=== PATIENT | male | born 1955 | race Caucasian/White ===

== ENCOUNTER 2022-05-01 20:19 | Emergency (ER) | payer OTHER ==
--- OUTSIDE RECORDS SUMMARY | 2022-05-01 20:23 | XMS REPORT | Continuity of Care Document ---
:1955 Author Organization [facility] t Address [address] [place] [address] Dr. [address]. [address] [place] [address] Care Team Providers Name Role Phone [facility] Physician Harlan Rabago MD Attending Clinician CHRETIEN_F Attending Clinician Unavailable Michelle Garcia MD Attending Clinician Adeline Brewster Attending Clinician [phone] Adriana Lentz Attending Clinician Unavailable MIKA Attending Clinician Unavailable Jada Álvarez Attending Clinician [phone] Maritza Del Toro MD Attending Clinician Provider, Unknown Attending Clinician Unavailable Alyce Louise Attending Clinician [phone] ALYCE PUTNAM Attending Clinician Unavailable CHRETIEN_F Admitting Clinician Unavailable MIKA Admitting Clinician Unavailable Payers Payer Name Policy Type Policy Number Effective Date Expiration Date S [facility] [id number] 2021 00:00:00 [place] [id number] 2019 00:00:00 Problems Condition Condition Condition Status Onset Resolution Last Treating Co mments Source Name Details Category Date Date Treatment Clinician Date Chronic Chronic Problem Active 2021-06 Raymond low back Low Back 06-08 Commun i pain Pain 00:00: ty [facility] Essential Essential Problem Active 2021-06 Swe soraya hypertensi Hypertensi 0-18 Co mmuni on on 00:00: ty 00 [facility] Fatigue Fatigue Problem Active 2021-06 Raymond 0-18 Communi 00:00: ty 00 [facility] Pain of Pain of Problem Active 2021-06 Raymond left hip Left Hip 0-18 Commun i joint Joint 00:00: ty 00 [facility] Hyperchole Hyperchole Problem Active 2021-06 S weeny sterolemia sterolemia 0-18 Co mmuni 00:00: ty 00 [facility] Knee joint Knee Joint Problem Active 2021-06 S weeny painful on Painful on 0-18 Co mmuni movement Movement 00:00: ty 00 [facility] Diabetes Diabetes Problem Active Sween y mellitus Mellitus 8-30 Commun i 00:00: ty 00 [facility] Diabetic Diabetic Problem Active Sween y peripheral Peripheral 8-30 Co mmuni neuropathy Neuropathy 00:00: ty 00 [facility] Hyperlipid Hyperlipid Problem Active S weeny emia emia 8-30 Communi 00:00: ty 00 [facility] Edema of Edema of Problem Active Sween y lower Lower 8-30 Communi extremity Extremity 00:00: ty 00 [facility] Osteoarthr Osteoarthr Disease Active Overview : Methodi itis of itis of 4-[address] left knee left knee 00:00: g of this H ospita 00 note l might be different from the original. Added automatic ally from request for surgery [id number] Primary Primary Disease Active Methodi osteoarthr osteoarthr 7-20 st itis of itis of 00:00: Hospita both knees both knees 00 l Allergies, Adverse Reactions, Alerts This patient has no known allergies or adverse reactions. Social History Social Habit Start Date Stop Date Quantity Comments Source Alcohol intake 2022-04-18 2022-04-18 Current Sikhism 00:00:00 00:00:00 non-drinker of Hospital alcohol (finding) Tobacco use and 2017-06-07 2017-06-[address] [facility] exposure 00[facility]00[facility]00 [facility] Sex Assigned At [birth year] [facility] 00:00:00 00:00:00 Hospital Smoking Status Start Date Stop Date Source Never smoked tobacco [facility] Medications Ordered Filled Start Stop Current Ordering Indication Dosage Frequency Signature Comments Components Source Medication Medication Date Date Medication? Clinician (SIG) Name Name ibuprofen 0 Yes 200mg Q6H Take 200 Met hodi (ADVIL,MOTR 7-[address] IN) 200 MG 15:22: mouth Hospit a tablet 26 every 6 l (six) hours as needed for mild pain. acetaminoph 0 Yes 325mg Q6H Take 325 M ethodi en 7-[address] (TYLENOL) 15:22: mouth Hospita 325 MG 26 every 6 l tablet (six) hours as needed for fever. metFORMIN 0 Yes 500mg Q.5D Take 500 Met hodi XR 6-[address] (GLUCOPHAGE 00:00: mouth 2 [facility] -XR) 500 mg 00 (two) l 24 hr times a tablet day. acetaminoph Yes TAKE 1 Meth chris en-codeine 5-[address] (TYLENOL 00:00: MOUTH Hospita WITH 00 EVERY 8 l CODEINE #3) HOURS 300-30 mg NEEDED FOR per tablet 7 DAYS predniSONE 0 Yes 20mg Q.5D Take 20 mg M ethodi (DELTASONE) 5-[address] 20 mg 00:00: (two) Hospita tablet 00 times a l day. fenofibrate 0 Yes Method i (TRICOR) 4-08 st 145 MG 00:00: Hospita tablet 00 l chlorthalid 0 Yes 25mg QD Take 25 mg Methodi one 4-[address] (HYGROTEN) 00:00: daily. Hospi ta 25 MG 00 l tablet gabapentin 0 Yes 300mg Q.5D Take 300 Me thodi (NEURONTIN) 4-[address] 300 mg 00:00: mouth 2 Hospita capsule 00 (two) l times a day. magnesium 2021-0 Yes 1{tbl} QD Take 1 Meth chris oxide 4-[address] (MAG-OX) 00:00: mouth Hospita 400 mg 00 every l (241.3 mg evening. magnesium) tablet metoprolol 0 Yes 25mg QD Take 25 mg M ethodi succinate 4-[address] XL 00:00: daily. Hospita (TOPROL-XL) 00 l 25 mg 24 hr tablet Nystop Yes APPLY Methodi 100,000 4-[address] unit/gram 00:00: TOPICALLY [facility] powder 00 TO l AFFECTED AREA TWICE DAILY tadalafiL 0 Yes 10mg QD Take 10 mg Me thodi (CIALIS) 10 4-[address] MG tablet 00:00: daily. Hospit a 00 l traMADoL 0 Yes 50mg Q8H Take 50 mg Met hodi (ULTRAM) 50 4-[address] mg tablet 00:00: every 8 Hospi ta 00 (eight) l hours as needed. chlorthalid chlorthalid No 1 Q1D chlorthali Raymond one 25 mg one 25 mg done 25 mg Communi tablet Take tablet Take tablet ty 1 tablet 1 tablet Take 1 Hospi ta every day every day tablet l by oral by oral every day Clin ics route for route for by oral 90 days. 90 days. route for 90 days. gabapentin gabapentin No 1capsul BID gabapentin Raymond 300 mg 300 mg e(s) 300 mg Communi capsule capsule capsule ty Take 1 Take 1 Take 1 Hospita capsule capsule capsule l twice a day twice a day twice a Clinics by oral by oral day by route for route for oral route 30 days. 30 days. for 30 days. ibuprofen ibuprofen No ibuprofen [facility] ty [facility] l Clinics magnesium magnesium No 1capsul Q1D magnesium Raymond 400 mg (as 400 mg (as e(s) 400 mg (as Communi magnesium magnesium magnesium ty oxide) oxide) oxide) Hospita capsule capsule capsule l Take 1 Take 1 Take 1 Clinics capsule capsule capsule every day every day every day by oral by oral by oral route in route in route in the the the evening. evening. evening. metoprolol metoprolol No 1 Q1D metoprolol Raymond succinate succinate succinate Communi ER 25 mg ER 25 mg ER 25 mg ty tablet,exte tablet,exte tablet,ext Hospita nded nded ended l release 24 release 24 release 24 Clinics hr Take 1 hr Take 1 hr Take 1 tablet tablet tablet every day every day every day by oral by oral by oral route for route for route for 90 days. 90 days. 90 days. nystatin nystatin No nystatin Swe soraya 100,000 100,000 100,000 Commun i unit/gram unit/gram unit/gram ty topical topical topical Hospit a powder powder powder l APPLY TO APPLY TO APPLY TO Cli nics THE THE THE AFFECTED AFFECTED AFFECTED AREA(S) BY AREA(S) BY AREA(S) BY TOPICAL TOPICAL TOPICAL ROUTE 2 ROUTE 2 ROUTE 2 TIMES PER TIMES PER TIMES PER DAY DAY DAY tadalafil tadalafil No 1 Q1D tadalafil Raymond 10 mg 10 mg 10 mg Communi tablet Take tablet Take tablet ty 1 tablet 1 tablet Take 1 Hospi ta every day every day tablet l by oral by oral every day Clin ics route for route for by oral 30 days. 30 days. route for 30 days. tramadol 50 tramadol 50 No 1 Q8H tramadol Raymond mg tablet mg tablet 50 mg Comm uni Take 1 Take 1 tablet ty tablet tablet Take 1 Hospita every 8 every 8 tablet l hours by hours by every 8 Clin ics oral route oral route hours by as needed. as needed. oral route as needed. Tylenol Tylenol No Tylenol [facility] Commun[facility] ty [facility] l Clinics acetaminoph acetaminoph No 1 Q8H acetaminop Raymond en 300 en 300 hen 300 Communi mg-codeine mg-codeine mg-codeine ty 30 mg 30 mg 30 mg Hospita tablet Take tablet Take tablet l 1 tablet 1 tablet Take 1 Clini cs every 8 every 8 tablet hours by hours by every 8 oral route oral route hours by as needed as needed oral route for 7 days. for 7 days. as needed for 7 days. chlorthalid chlorthalid No chlorthali Raymond one 25 mg one 25 mg done 25 mg Communi tablet TAKE tablet TAKE tablet ty 1 TABLET BY 1 TABLET BY TAKE 1 Hospita MOUTH ONCE MOUTH ONCE TABLET BY l DAILY FOR DAILY FOR MOUTH ONCE Clinics 90 DAYS 90 DAYS DAILY FOR 90 DAYS fenofibrate fenofibrate No fenofibrat Raymond nanocrystal nanocrystal e C ommuni lized 145 lized 145 nanocrysta ty mg tablet mg tablet llized 145 Hospita TAKE 1 TAKE 1 mg tablet l TABLET BY TABLET BY TAKE 1 Cli nics MOUTH ONCE MOUTH ONCE TABLET BY DAILY FOR DAILY FOR MOUTH ONCE 30 DAYS 30 DAYS DAILY FOR 30 DAYS ibuprofen ibuprofen No ibuprofen [facility] ty [facility] l Clinics magnesium magnesium No 1capsul Q1D magnesium Raymond 400 mg (as 400 mg (as e(s) 400 mg (as Communi magnesium magnesium magnesium ty oxide) oxide) oxide) Hospita capsule capsule capsule l Take 1 Take 1 Take 1 Clinics capsule capsule capsule every day every day every day by oral by oral by oral route in route in route in the the the evening. evening. evening. magnesium magnesium No magnesium Raymond oxide 400 oxide 400 oxide 400 Communi mg (241.3 mg (241.3 mg (241.3 ty mg mg mg Hospita magnesium) magnesium) magnesium) l tablet TAKE tablet TAKE tablet Clinics 1 TABLET BY 1 TABLET BY TAKE 1 MOUTH ONCE MOUTH ONCE TABLET BY DAILY IN DAILY IN MOUTH ONCE THE EVENING THE EVENING DAILY IN THE EVENING metformin metformin No metformin Raymond ER 500 mg ER 500 mg ER 500 mg Communi tablet,exte tablet,exte tablet,ext ty nded nded ended Hospita release 24 release 24 release 24 l hr TAKE 1 hr TAKE 1 hr TAKE 1 Clinics TABLET BY TABLET BY TABLET BY MOUTH TWICE MOUTH TWICE MOUTH DAILY DAILY TWICE DAILY metoprolol metoprolol No metoprolol Raymond succinate succinate succinate Communi ER 25 mg ER 25 mg ER 25 mg ty tablet,exte tablet,exte tablet,ext Hospita nded nded ended l release 24 release 24 release 24 Clinics hr TAKE 1 hr TAKE 1 hr TAKE 1 TABLET BY TABLET BY TABLET BY MOUTH ONCE MOUTH ONCE MOUTH ONCE DAILY FOR DAILY FOR DAILY FOR 90 DAYS 90 DAYS 90 DAYS Nystop Nystop No Nystop Raymond 100,000 100,000 100,000 Commun i unit/gram unit/gram unit/gram ty topical topical topical Hospit a powder powder powder l APPLY APPLY APPLY Clinics POWDER POWDER POWDER TOPICALLY TOPICALLY TOPICALLY TO AFFECTED TO AFFECTED TO AREA TWICE AREA TWICE AFFECTED DAILY DAILY AREA TWICE DAILY prednisone prednisone No 1 BID prednisone Raymond 20 mg 20 mg 20 mg Communi tablet Take tablet Take tablet ty 1 tablet 1 tablet Take 1 Hospi ta twice a day twice a day tablet l by oral by oral twice a Clinic s route for 5 route for 5 day by days. days. oral route for 5 days. tramadol 50 tramadol 50 No tramadol Raymond mg tablet mg tablet 50 mg Comm uni TAKE 1 TAKE 1 tablet ty TABLET BY TABLET BY TAKE 1 [facility] MOUTH EVERY MOUTH EVERY TABLET BY l 8 HOURS 8 HOURS MOUTH Cl inics NEEDED NEEDED EVERY 8 HOURS NEEDED Tylenol Tylenol No Tylenol [facility] l [facility] acetaminoph acetaminoph No 1 Q8H acetaminop Raymond en 300 en 300 hen 300 Communi mg-codeine mg-codeine mg-codeine ty 30 mg 30 mg 30 mg Hospita tablet Take tablet Take tablet l 1 tablet 1 tablet Take 1 Clini cs every 8 every 8 tablet hours by hours by every 8 oral route oral route hours by as needed as needed oral route for 7 days. for 7 days. as needed for 7 days. chlorthalid chlorthalid No chlorthali Raymond one 25 mg one 25 mg done 25 mg Communi tablet TAKE tablet TAKE tablet ty 1 TABLET BY 1 TABLET BY TAKE 1 Hospita MOUTH ONCE MOUTH ONCE TABLET BY l DAILY FOR DAILY FOR MOUTH ONCE Clinics 90 DAYS 90 DAYS DAILY FOR 90 DAYS fenofibrate fenofibrate No fenofibrat Raymond nanocrystal nanocrystal e C ommuni lized 145 lized 145 nanocrysta ty mg tablet mg tablet llized 145 Hospita TAKE 1 TAKE 1 mg tablet l TABLET BY TABLET BY TAKE 1 Cli nics MOUTH ONCE MOUTH ONCE TABLET BY DAILY FOR DAILY FOR MOUTH ONCE 30 DAYS 30 DAYS DAILY FOR 30 DAYS ibuprofen ibuprofen No ibuprofen [facility] Clinics magnesium magnesium No 1capsul Q1D magnesium Raymond 400 mg (as 400 mg (as e(s) 400 mg (as Communi magnesium magnesium magnesium ty oxide) oxide) oxide) Hospita capsule capsule capsule l Take 1 Take 1 Take 1 Clinics capsule capsule capsule every day every day every day by oral by oral by oral route in route in route in the the the evening. evening. evening. magnesium magnesium No magnesium Raymond oxide 400 oxide 400 oxide 400 Communi mg (241.3 mg (241.3 mg (241.3 ty mg mg mg Hospita magnesium) magnesium) magnesium) l tablet TAKE tablet TAKE tablet Clinics 1 TABLET BY 1 TABLET BY TAKE 1 MOUTH ONCE MOUTH ONCE TABLET BY DAILY IN DAILY IN MOUTH ONCE THE EVENING THE EVENING DAILY IN THE EVENING metformin metformin No metformin Raymond ER 500 mg ER 500 mg ER 500 mg Communi tablet,exte tablet,exte tablet,ext ty nded nded ended Hospita release 24 release 24 release 24 l hr TAKE 1 hr TAKE 1 hr TAKE 1 Clinics TABLET BY TABLET BY TABLET BY MOUTH TWICE MOUTH TWICE MOUTH DAILY DAILY TWICE DAILY metoprolol metoprolol No metoprolol Raymond succinate succinate succinate Communi ER 25 mg ER 25 mg ER 25 mg ty tablet,exte tablet,exte tablet,ext Hospita nded nded ended l release 24 release 24 release 24 Clinics hr TAKE 1 hr TAKE 1 hr TAKE 1 TABLET BY TABLET BY TABLET BY MOUTH ONCE MOUTH ONCE MOUTH ONCE DAILY FOR DAILY FOR DAILY FOR 90 DAYS 90 DAYS 90 DAYS Nystop Nystop No Nystop Raymond 100,000 100,000 100,000 Commun i unit/gram unit/gram unit/gram ty topical topical topical Hospit a powder powder powder l APPLY APPLY APPLY Clinics POWDER POWDER POWDER TOPICALLY TOPICALLY TOPICALLY TO AFFECTED TO AFFECTED TO AREA TWICE AREA TWICE AFFECTED DAILY DAILY AREA TWICE DAILY prednisone prednisone No 1 BID prednisone Raymond 20 mg 20 mg 20 mg Communi tablet Take tablet Take tablet ty 1 tablet 1 tablet Take 1 Hospi ta twice a day twice a day tablet l by oral by oral twice a Clinic s route for 5 route for 5 day by days. days. oral route for 5 days. tramadol 50 tramadol 50 No tramadol Raymond mg tablet mg tablet 50 mg Comm uni TAKE 1 TAKE 1 tablet ty TABLET BY TABLET BY TAKE 1 [facility] MOUTH EVERY MOUTH EVERY TABLET BY l 8 HOURS 8 HOURS MOUTH Cl inics NEEDED NEEDED EVERY 8 HOURS NEEDED Tylenol Tylenol No Tylenol Raymond Communi ty [facility] fenofibrate fenofibrate No fenofibrat Raymond nanocrystal nanocrystal e C ommuni lized 145 lized 145 nanocrysta ty mg tablet mg tablet llized 145 Hospita TAKE 1 TAKE 1 mg tablet l TABLET BY TABLET BY TAKE 1 Cli nics MOUTH ONCE MOUTH ONCE TABLET BY DAILY FOR DAILY FOR MOUTH ONCE 30 DAYS 30 DAYS DAILY FOR 30 DAYS ibuprofen ibuprofen No [facility]uprofen [facility] No 1capsul Q1D magnesium Raymond 400 mg (as 400 mg (as e(s) 400 mg (as Communi magnesium magnesium magnesium ty oxide) oxide) oxide) [facility] capsule capsule capsule l Take 1 Take 1 Take 1 Clinics capsule capsule capsule every day every day every day by oral by oral by oral route in route in route in the the the evening. evening. evening. metformin metformin No metformin Raymond ER 500 mg ER 500 mg ER 500 mg Communi tablet,exte tablet,exte tablet,ext ty nded nded ended Hospita release 24 release 24 release 24 l hr TAKE 1 hr TAKE 1 hr TAKE 1 Clinics TABLET BY TABLET BY TABLET BY MOUTH TWICE MOUTH TWICE MOUTH DAILY DAILY TWICE DAILY thiamine thiamine No thiamine Swe soraya HCl (bulk) HCl (bulk) HCl (bulk) Communi [facility] Tylenol Tylenol No Tylenol Raymond [facility] Vitamin C Vitamin C No Vitamin C Raymond [facility] Vitamin D Vitamin D No Vitamin D Raymond [facility] zinc zinc No zinc Raymond [facility] chlorthalid chlorthalid No chlorthali Raymond one 25 mg one 25 mg done 25 mg [facility] tablet TAKE tablet TAKE tablet ty 1 TABLET [facility] TABLET BY l DAILY FOR DAILY FOR MOUTH ONCE Clinics 90 DAYS 90 DAYS DAILY FOR 90 DAYS fenofibrate fenofibrate No 1capsul Q1D fenofibrat Raymond micronized micronized e(s) e Com north 134 mg 134 mg micronized ty capsule capsule 134 mg Hospita Take 1 Take 1 capsule l capsule capsule Take 1 Clinics every day every day capsule by oral by oral every day route. route. by oral route. gabapentin gabapentin No 1capsul BID gabapentin Raymond 300 mg 300 mg e(s) 300 mg Communi capsule capsule capsule ty Take 1 Take 1 Take 1 Hospita capsule capsule capsule l twice a day twice a day twice a Clinics by oral by oral day by route for route for oral route 30 days. 30 days. for 30 days. ibuprofen ibuprofen No ibuprofen Raymond Communi [facility] magnesium magnesium No 1capsul Q1D magnesium Raymond 400 mg (as 400 mg (as e(s) 400 mg (as Communi magnesium magnesium magnesium ty oxide) oxide) oxide) Hospita capsule capsule capsule l Take 1 Take 1 Take 1 Clinics capsule capsule capsule every day every day every day by oral by oral by oral route in route in route in the the the evening. evening. evening. metformin metformin No metformin Raymond ER 500 mg ER 500 mg ER 500 mg Communi tablet,exte tablet,exte tablet,ext ty nded nded ended Hospita release 24 release 24 release 24 l hr TAKE 1 hr TAKE 1 hr TAKE 1 Clinics TABLET BY TABLET BY TABLET BY MOUTH TWICE MOUTH TWICE MOUTH DAILY DAILY TWICE DAILY thiamine thiamine No thiamine Swe soraya HCl (bulk) HCl (bulk) HCl (bulk) Communi [facility] Tylenol Tylenol No Tylenol Raymond [facility] Vitamin C Vitamin C No Vitamin C Raymond [facility] Vitamin D Vitamin D No Vitamin D [facility] zinc zinc No zinc Raymond [facility] chlorthalid chlorthalid No chlorthali Raymond one 25 mg one 25 mg done 25 mg Communi tablet TAKE tablet TAKE tablet ty 1 TABLET BY 1 TABLET BY TAKE 1 [facility] MOUTH ONCE MOUTH ONCE TABLET BY l DAILY FOR DAILY FOR MOUTH ONCE Clinics 90 DAYS 90 DAYS DAILY FOR 90 DAYS cyclobenzap cyclobenzap No 1 TID cyclobenza Raymond rine 10 mg rine 10 mg james 10 Communi tablet Take tablet Take mg tablet ty 1 tablet 3 1 tablet 3 Take 1 H ospita times a day times a day tablet 3 l by oral by oral times a Clinic s route as route as day by needed. needed. oral route as needed. fenofibrate fenofibrate No fenofibrat Raymond micronized micronized e Com north 134 mg 134 mg micronized ty capsule capsule 134 mg Hospita Take 1 Take 1 capsule l capsule capsule Take 1 Clinics every day every day capsule by oral by oral every day route. route. by oral route. gabapentin gabapentin No gabapentin Raymond 300 mg 300 mg 300 mg [facility] capsule capsule capsule ty TAKE 1 [facility] BY [facility]SULE BY l MOUTH TWICE MOUTH TWICE MOUTH Clinics DAILY DAILY TWICE DAILY ibuprofen ibuprofen No [facility]uprofen [facility] magnesium magnesium No 1capsul Q1D magnesium Raymond 400 mg (as 400 mg (as e(s) 400 mg (as Communi magnesium magnesium magnesium ty oxide) oxide) oxide) [facility] capsule l Take 1 Take 1 Take 1 Clinics capsule capsule capsule every day every day every day by oral by oral by oral route in route in route in the the the evening. evening. evening. magnesium magnesium No magnesium Raymond oxide 400 oxide 400 oxide 400 Communi mg (241.3 mg (241.3 mg (241.3 ty mg mg mg Hospita magnesium) magnesium) magnesium) l tablet TAKE tablet TAKE tablet Clinics 1 TABLET BY 1 TABLET BY TAKE 1 MOUTH ONCE MOUTH ONCE TABLET BY DAILY IN DAILY IN MOUTH ONCE THE EVENING THE EVENING DAILY IN THE EVENING metformin metformin No metformin Raymond ER 500 mg ER 500 mg ER 500 mg Communi tablet,exte tablet,exte tablet,ext ty nded nded ended Hospita release 24 release 24 release 24 l hr TAKE 1 hr TAKE 1 hr TAKE 1 Clinics TABLET BY TABLET BY TABLET BY MOUTH TWICE MOUTH TWICE MOUTH DAILY DAILY TWICE DAILY metoprolol metoprolol No metoprolol Raymond succinate succinate succinate Communi ER 25 mg ER 25 mg ER 25 mg ty tablet,exte tablet,exte tablet,ext Hospita nded nded ended l release 24 release 24 release 24 Clinics hr TAKE 1 hr TAKE 1 hr TAKE 1 TABLET BY TABLET BY TABLET BY MOUTH ONCE MOUTH ONCE MOUTH ONCE DAILY FOR DAILY FOR DAILY FOR 90 DAYS 90 DAYS 90 DAYS rosuvastati rosuvastati No rosuvastat Raymond n 20 mg n 20 mg in 20 mg Commu ni tablet Take tablet Take tablet ty 1 tablet 1 tablet Take 1 Hospi ta every day every day tablet l by oral by oral every day Clin ics route. route. by oral route. thiamine thiamine No thiamine Swe soraya HCl (bulk) HCl (bulk) HCl (bulk) [facility] Tylenol Tylenol No Tylenol Raymond [facility] Vitamin C Vitamin C No Vitamin C Raymond [facility] Vitamin D Vitamin D No Vitamin D Raymond [facility] zinc zinc No zinc Raymond [facility] chlorthalid chlorthalid No chlorthali Raymond one 25 mg one 25 mg done 25 mg [facility] tablet TAKE tablet TAKE tablet ty 1 TABLET BY 1 TABLET BY TAKE 1 Hospita MOUTH ONCE MOUTH ONCE TABLET BY l DAILY FOR DAILY FOR MOUTH ONCE Clinics 90 DAYS 90 DAYS DAILY FOR 90 DAYS fenofibrate fenofibrate No 1capsul Q1D fenofibrat Raymond micronized micronized e(s) e Com north 134 mg 134 mg micronized ty capsule capsule 134 mg Hospita Take 1 Take 1 capsule l capsule capsule Take 1 Clinics every day every day capsule by oral by oral every day route. route. by oral route. gabapentin gabapentin No gabapentin Raymond 300 mg 300 mg 300 mg Communi capsule capsule capsule ty TAKE 1 TAKE 1 TAKE 1 Hospita CAPSULE BY CAPSULE BY CAPSULE BY l MOUTH TWICE MOUTH TWICE MOUTH Clinics DAILY DAILY TWICE DAILY ibuprofen ibuprofen No ibuprofen Raymond [facility] magnesium magnesium No 1capsul Q1D magnesium Raymond 400 mg (as 400 mg (as e(s) 400 mg (as Commun[facility] magnesium magnesium magnesium ty oxide) oxide) oxide) Hospita capsule capsule capsule l Take 1 Take 1 Take 1 Clinics capsule capsule capsule every day every day every day by oral by oral by oral route in route in route in the the the evening. evening. evening. metformin metformin No metformin Raymond ER 500 mg ER 500 mg ER 500 mg Communi tablet,exte tablet,exte tablet,ext ty nded nded ended Hospita release 24 release 24 release 24 l hr TAKE 1 hr TAKE 1 hr TAKE 1 Clinics TABLET BY TABLET BY TABLET BY MOUTH TWICE MOUTH TWICE MOUTH DAILY DAILY TWICE DAILY thiamine thiamine No thiamine Swe soraya HCl (bulk) HCl (bulk) HCl (bulk) [facility] Tylenol Tylenol No Tylenol Raymond [facility] Vitamin C Vitamin C No Vitamin C Raymond [facility] Vitamin D Vitamin D No Vitamin D Raymond [facility] zinc zinc No zinc Raymond [facility] acetaminoph acetaminoph No 1 Q8H acetaminop Raymond en 300 en 300 hen 300 Communi mg-codeine mg-codeine mg-codeine ty 30 mg 30 mg 30 mg Hospita tablet Take tablet Take tablet l 1 tablet 1 tablet Take 1 Clini cs every 8 every 8 tablet hours by hours by every 8 oral route oral route hours by as needed as needed oral route for 3 days. for 3 days. as needed for 3 days. amoxicillin amoxicillin No 1 Q12H amoxicilli Raymond 875 mg 875 mg n 875 mg Communi tablet Take tablet Take tablet ty 1 tablet 1 tablet Take 1 Hospi ta every 12 every 12 tablet l hours by hours by every 12 Cli nics oral route oral route hours by as directed as directed oral route for 14 for 14 as days. days. directed for 14 days. Immunizations Ordered Immunization Filled Immunization Date Status Commen ts Source Name Name COVID-19 COVID-19 2020-09-27 Completed [facility]era ty (SARS-COV-2) (SARS-COV-2) 00:00:00 [facility] linics vaccine, unspecified vaccine, unspecified COVID-19 COVID-19 2020-09-27 Completed [facility] ty (SARS-COV-2) (SARS-COV-2) 00:00:00 [facility] linics vaccine, unspecified vaccine, unspecified COVID-19 COVID-19 2020-09-27 Completed [facility] Communi ty (SARS-COV-2) (SARS-COV-2) 00:00:00 [facility] linics vaccine, unspecified vaccine, unspecified COVID-19 COVID-19 2020-09-27 Completed [facility] (SARS-COV-2) (SARS-COV-2) 00:00:00 [facility] linics vaccine, unspecified vaccine, unspecified COVID-19 COVID-19 2020-09-27 Completed [facility] (SARS-COV-2) (SARS-COV-2) 00:00:00 [facility] linics vaccine, unspecified vaccine, unspecified COVID-19 COVID-19 2020-09-27 Completed [facility] (SARS-COV-2) (SARS-COV-2) 00:00:00 [facility] linics vaccine, unspecified vaccine, unspecified COVID-19 COVID-19 2020-09-27 Completed [facility] (SARS-COV-2) (SARS-COV-2) 00:00:00 [facility] linics vaccine, unspecified vaccine, unspecified SARS-COV-2 SARS-COV-2 2020-09-27 Completed [facility] (COVID-19) vaccine, (COVID-19) vaccine, 00:00:00 [facility] UNSPECIFIED UNSPECIFIED COVID-19 COVID-19 2020-08-29 Completed [facility] (SARS-COV-2) (SARS-COV-2) 00:00:00 [facility] linics vaccine, unspecified vaccine, unspecified COVID-19 COVID-19 2020-08-29 Completed [facility] (SARS-COV-2) (SARS-COV-2) 00:00:00 [facility] linics vaccine, unspecified vaccine, unspecified COVID-19 COVID-19 2020-08-29 Completed [facility] (SARS-COV-2) (SARS-COV-2) 00:00:00 [facility] linics vaccine, unspecified vaccine, unspecified COVID-19 COVID-19 2020-08-29 Completed [facility] (SARS-COV-2) (SARS-COV-2) 00:00:00 [facility] linics vaccine, unspecified vaccine, unspecified COVID-19 COVID-19 2020-08-29 Completed [facility] (SARS-COV-2) (SARS-COV-2) 00:00:00 [facility] linics vaccine, unspecified vaccine, unspecified COVID-19 COVID-19 2020-08-29 Completed [facility] (SARS-COV-2) (SARS-COV-2) 00:00:00 [facility] linics vaccine, unspecified vaccine, unspecified COVID-19 COVID-19 2020-08-29 Completed [facility] (SARS-COV-2) (SARS-COV-2) 00:00:00 [facility] linics vaccine, unspecified vaccine, unspecified SARS-COV-2 SARS-COV-2 2020-08-29 Completed [facility] (COVID-19) vaccine, (COVID-19) vaccine, 00:00:00 [facility] UNSPECIFIED UNSPECIFIED Vital Signs Vital Name Observation Time Observation Value Comments Source BP Diastolic 2022-04-08 00:00:00 80 mm[Hg] [facility] s Height 2022-04-08 00:00:00 74 [in_i] [facility] s BMI (Body Mass 2022-04-08 00:00:00 36.5 kg/m2 [facility] s BP Systolic 2022-04-08 00:00:00 120 mm[Hg] [facility] s Body Weight 2022-04-08 00:00:00 4547.2 [oz_av] [facility] s BP Diastolic 2022-03-19 00:00:00 84 mm[Hg] [facility] s Height 2022-03-19 00:00:00 74 [in_i] [facility] s BMI (Body Mass 2022-03-19 00:00:00 35.6 kg/m2 [facility] s BP Systolic 2022-03-19 00:00:00 144 mm[Hg] [facility] s Body Weight 2022-03-19 00:00:00 4438.4 [oz_av] [facility] s BP Diastolic 2022-01-29 00:00:00 84 mm[Hg] [facility] s Height 2022-01-29 00:00:00 74 [in_i] [facility] s BMI (Body Mass 2022-01-29 00:00:00 35.5 kg/m2 [facility]) [facility] s BP Systolic 2022-01-29 00:00:00 134 mm[Hg] [facility] s Body Weight 2022-01-29 00:00:00 4419.2 [oz_av] [facility] s BP Diastolic 2021-10-02 00:00:00 77 mm[Hg] [facility] s Height 2021-10-02 00:00:00 74 [in_i] [facility] s BMI (Body Mass 2021-10-02 00:00:00 36.6 kg/m2 [facility] s BP Systolic 2021-10-02 00:00:00 118 mm[Hg] [facility] s Body Weight 2021-10-02 00:00:00 4560 [oz_av] [facility] s BP Diastolic 2021-09-04 00:00:00 76 mm[Hg] [facility] s Height 2021-09-04 00:00:00 74 [in_i] [facility] s BMI (Body Mass 2021-09-04 00:00:00 37.4 kg/m2 [facility]) [facility] s BP Systolic 2021-09-04 00:00:00 141 mm[Hg] [facility] Body Weight 2021-09-04 00:00:00 4665.6 [oz_av] [facility] s BP Diastolic 2020-12-19 00:00:00 85 mm[Hg] [facility] s Height 2020-12-19 00:00:00 74 [in_i] [facility] s BMI (Body Mass 2020-12-19 00:00:00 38.5 kg/m2 [facility] s BP Systolic 2020-12-19 00:00:00 166 mm[Hg] [facility] s Body Weight 2020-12-19 00:00:00 4793.6 [oz_av] [facility] s Body height 2022-04-18 14:20:00 188 cm [facility] Body weight 2022-04-18 14:20:00 124.739 kg [facility] BMI 2022-04-18 14:20:00 35.31 kg/m2 [facility] Procedures Procedure Date / Time Performing Clinician Source Performed MRI SPINE EXTERNAL STUDY 2022-04-13 16:58:47 Harlan Rabago [facility] MRI, lumbar spine, w/o 2022-04-08 00:00:00 [facility] ME ARTHROCENTESIS 2022-03-18 20:10:00 Michelle Garcia [facility] ASPIR&/INJ MAJOR JT/BURSA W/O US ME ARTHROCENTESIS 2021-12-10 20:40:00 Michelle Garcia [facility] ASPIR&/INJ MAJOR JT/BURSA W/O US XR, lumbosacral spine, 2 2021-10-02 00:00:00 [facility] or 3 view Hospital Clinics XR, hip + pelvis, 2021-10-02 00:00:00 Farhan [facility] unilateral, 2 or 3 view Hospital Clinics ME ARTHROCENTESIS 2021-09-10 13:50:00 Michelle Garcia [facility] ASPIR&/INJ MAJOR JT/BURSA W/O US electrocardiogram, 2021-09-04 00:00:00 [facility] 12 [facility] min Hospit [facility] Clinics XR, chest, 2 view 2021-09-04 00:00:00 [facility] polysomnogram 2021-09-04 00:00:00 [facility] XR LEG LENGTH EVALUATION 2021-08-31 18:49:04 Maritza Del Toro [facility] Append[facility] Plan of Care Planned Activity Planned Date Details Comments Source Future Scheduled Test 2022-05-01 HEPATITIS B VACCINES [facility] 03:39:17 (1 of 3 - 3-dose series) [code = HEPATITIS B VACCINES (1 of 3 - 3-dose series)] Future Scheduled Test 2022-05-01 Hepatitis C screening [facility] 03:39:17 (procedure) [code = 321782292] Future Scheduled Test 2022-05-01 COLONOSCOPY SCREENING [facility] 03:39:17 [code = COLONOSCOPY SCREENING] Future Scheduled Test 2022-05-01 SHINGLES VACCINES (1 [facility] 03:39:17 of 2) [code = SHINGLES VACCINES (1 of 2)] Future Scheduled Test 2022-05-01 COVID-19 VACCINE (3 - [facility] 03:39:17 Booster for Moderna series) [code = COVID-19 VACCINE (3 - Booster for Moderna series)] Future Scheduled Test 2022-05-01 65+ PNEUMOCOCCAL Me [facility] 03:39:17 VACCINE (1 - PCV) [code = 65+ PNEUMOCOCCAL VACCINE (1 - PCV)] Future Scheduled Test 2022-05-01 INFLUENZA VACCINE [facility] 03:39:17 [code = INFLUENZA VACCINE] Diagnostic Test 2022-04-08 CMP, serum or plasma [facility] Pending 00:00:00 [code = CMP, serum or Hospit al Clinics plasma] Instructions [facility] s Encounters Start End Encounter Admission Attending Care Care Encounter Source Date/Time Date/Time Type Type Clinicians Facility Department ID 2022-04-18 2022-04-18 Hospital Cris 1.2.840.1 [id number] Methodi 08:26:04 23:59:00 Encounter Harlan 46366.1.1 6[facility] 3.430.2.7 Hospit a .3.166926 l .8 2022-04-18 2022-04-18 Office Cris, 1.2.840.1 [id number] Methodi 08:30:00 09:12:13 Visit Harlan 06029.1.[address] [place] 3.430.2.7 Hospit a .3.760371 l .8 2022-04-18 2022-04-18 [facility] [id number] [place] 00:00:00 00:00:00 HARLAN [address] 2022-04-18 2022-04-18 Orders Cris, 1.2.840.1 [id number] Methodi 00:00:00 00:00:00 Only Harlan 64910.1.[address] 3.430.2.7 Hospit a .3.916528 l .8 2022-04-18 2022-04-18 Travel 1.2.840.1 1.2.609.597 [id number] Methodi 00:00:00 00:00:[address] 3.430.2.7 0.2.7.3.698 Ho spita .3.161191 084.8 l .8 2022-04-18 2022-04-18 Outpatient [facility] [id number] [place] 00:00:00 00:00:00 HARLAN [address] 2022-04-08 2022-04-08 Outpatient CHRETIEN_F [facility] [id number] [place] 00:00:00 00:00:00 107 [facility] 2022-04-08 2022-04-08 Adeline [facility] [place] - [place] [id number] [place] 00:00:00 00:00:00 Juan Brewsteri INTERMEDIATE SCHOOL TEACHER-APPLIANCE SERVICER-B [facility] C: [address] [facility], [address], [place] [address] , Ph. 2022-03-20 2022-03-20 Outpatient CHRETIEN_F [facility] [id number] [place] 00:00:00 00:00:00 019 Commun i ty Hospita l Clinics 2022-03-19 2022-03-19 Outpatient CHRETIEN_F [facility] 9861 - [place] 00:00:00 00:00:00 018 Commun i ty Hospita l Clinics 2022-03-19 2022-03-19 Adeline [facility] [place] - [place] 18 [place] 00:00:00 00:00:00 [facility] INTERMEDIATE SCHOOL TEACHER-APPLIANCE SERVICER-B Hospital - ty C: [address] [facility], [address], [place] [address] , Ph. 2022-03-18 2022-03-18 Office Jose, 1.2.840.1 [id number] Methodi 15:10:00 15:31:30 Visit Michelle 12099.1.[address] [place] 3.430.2.7 Hospit a .3.124011 l .8 2022-03-18 2022-03-18 Travel 1.2.840.1 1.2.771.934 [id number] Methodi 00:00:00 00:00:[address] 3.430.2.7 0.2.7.3.698 Ho spita .3.660059 084.8 l .8 2022-03-18 2022-03-18 [facility] [id number] [place] 00:00:00 00:00:00 MICHELLE [address] 2022-03-18 2022-03-18 [facility] [id number] [place] 00:00:00 00:00:00 MICHELLE [address] 2022-03-08 2022-03-08 Travel 1.2.840.1 1.2.440.406 [id number] Methodi 00:00:00 00:00:[address] 3.430.2.7 0.2.7.3.698 Ho spita .3.669463 084.8 l .8 2022-02-13 2022-02-13 Outpatient CHRETIEN_F [facility] [id number] [place] 00:00:00 00:00:00 914 Commun i ty Hospita l Clinics 2022-01-29 2022-01-29 Outpatient CHRETIEN_F [facility] [id number] [place] 00:00:00 00:00:00 830 Commun i ty Hospita Clinics 2022-01-29 2022-01-29 Adeline [facility] [place] - [place] 30 [place] 00:00:00 00:00:00 Chretien, Count Includes [facility] mmuni INTERMEDIATE SCHOOL TEACHER-APPLIANCE SERVICER-B [facility] C: [address] [facility], [address], [place] [address] , Ph. 2022-01-29 2022-01-29 Outpatient Narcisa, [facility] [id number] 00:00:00 00:00:00 Adeline [id number]-11ed-a [id number] 2022-01-29 2022-01-29 Outpatient Narcisa, [facility] [id number] 00:00:00 00:00:00 Adeline [id number]-11ed-b [id number] 2021-12-10 2021-12-10 [facility] [id number] Methodi 15:40:00 16:19:55 Visit Michelle 09972.1.[address] [place] 3.430.2.7 Hospit a .3.136369 l .8 2021-12-10 2021-12-10 Travel 1.2.840.1 1.2.273.763 [id number] Methodi 00:00:00 00:00:[address] 3.430.2.7 0.2.7.3.698 Ho spita .3.815707 084.8 l .8 2021-12-10 2021-12-10 [facility] [id number] [place] 00:00:00 00:00:00 MICHELLE [address] 2021-10-02 2021-10-02 Outpatient CHRETIEN_F [facility] [id number] [place] 04:51:00 04:51:00 503 Commun i ty Hospita [facility] Clinics 2021-10-02 2021-10-02 Adeline [facility] [place] - [place] 00:00:00 00:00:00 Talikely [facility] mmuni INTERMEDIATE SCHOOL TEACHER-APPLIANCE SERVICER-B [facility] - ty C: [address] [facility], [address], [place] [address] , Ph. 2021-10-02 2021-10-02 Outpatient Narcisa [facility] [id number] 00:00:00 00:00:00 Adeline [id number] 2021-10-02 2021-10-02 Outpatient Narcisa, [facility] [id number] 00:00:00 00:00:00 Adeline [id number] 2021-09-27 2021-09-27 Outpatient CHRETIEN_F [facility] [id number] [place] 05:09:00 05:09:00 428 [facility] i ty Hospita [facility] Clinics 2021-09-25 2021-09-25 Outpatient CHRETIEN_F [facility] [id number] -[id number] [place] 12:00:00 12:00:00 426 Commun i ty Hospita l Clinics 2021-09-10 2021-09-10 Office Jose, 1.2.840.1 [id number] Methodi 08:50:00 09:20:09 Visit Michelle 55470.1.1 504 [facility] 3.430.2.7 Hospit a .3.119076 l .8 2021-09-10 2021-09-10 Travel 1.2.840.1 1.2.960.327 [id number] [id number] Methodi 00:00:00 00:00:[address] 3.430.2.7 0.2.7.3.698 Ho spita .3.107892 084.8 l .8 2021-09-10 2021-09-10 Outpatient JOSE [facility] [id number] [address] [place] 00:00:00 00:00:00 MICHELLE [address] 2021-09-05 2021-09-05 Telephone Blohm, 1.2.840.1 [id number] Methodi 00:00:00 00:00:[address] 3.430.2.7 Hospit a .3.444326 l .8 2021-09-05 2021-09-05 Travel 1.2.840.1 1.2.295.941 [id number] Methodi 00:00:00 00:00:[address] 3.430.2.7 0.2.7.3.698 Ho spita .3.552878 084.8 l .8 2021-09-04 2021-09-04 Outpatient [facility] 986 [place] 11:47:00 11:47:00 _L 405 Commun i ty [facility] 2021-09-04 2021-09-04 Telephone Blo, 1.2.840.1 [id number] Methodi 00:00:00 00:00:[address] 3.430.2.7 Hospit a .3.884858 l .8 2021-09-04 2021-09-04 [facility] [id number] 00:00:00 00:00:00 Jada [id number]-o [id number] 2021-09-04 2021-09-04 [facility] [place] - [place] 05 [place] 00:00:00 00:00:00 [facility] Comm uni INTERMEDIATE SCHOOL TEACHER-SOLAR INSTALLATION TECHNICIAN-C: Hospital - ty [address] [place] [address] [address], [place] [address] , Ph. 2021-08-31 2021-08-31 Office Tressa, 1.2.840.1 [id number] Methodi 15:00:00 15:00:00 Visit Maritza 39078.1.[address] [place] 3.430.2.7 Hospit a .3.925949 l .8 2021-08-31 2021-08-31 Documentat Provider, 1.2.840.1 [id number] Methodi 00:00:00 00:00:00 ion Unknown 90284.1.[address] 3.430.2.7 Hospit a .3.866547 l .8 2021-08-31 2021-08-31 Orders Blohm, 1.2.840.1 [id number] Methodi 00:00:00 00:00:00 Only Adriana 55727.1.[address] 3.430.2.7 Hospit a .3.915433 l .8 2021-08-31 2021-08-31 Prep for Blohm, 1.2.840.1 [id number] Methodi 00:00:00 00:00:00 Surgery Adriana 41661.1.[address] 3.430.2.7 Hospit a .3.273080 l .8 2021-08-31 2021-08-31 Travel 1.2.840.1 1.2.085.574 [id number] Methodi 00:00:00 00:00:[address] 3.430.2.7 0.2.7.3.698 Ho spita .3.424160 084.8 l .8 2021-08-31 2021-08-31 Outpatient TRESSA, [facility] [id number] [place] 00:00:00 00:00:00 MARITZA [address] 2021-08-31 2021-08-31 Outpatient TRESSA, [facility] [id number] [place] 00:00:00 00:00:00 MARITZA [address] 2021 2021 Travel 1.2.840.1 1.2.672.925 [id number] Methodi 00:00:00 00:00:[address] 3.430.2.7 0.2.7.3.698 Ho spita .3.699065 084.8 l .8 2021-03-31 2021-03-31 Outpatient [facility] 98 [place] 03:33:00 03:33:00 _L 030 Commun i ty Hospita [facility] Clinics 2021-03-19 2021-03-19 Outpatient [facility] [id number] [address] [place] [address] 00:00:00 00:00:[address] 2021-02-24 2021-02-24 Outpatient [facility] 98 [place] 03:01:00 03:01:00 _L 925 Commun i ty Hospita [facility] Clinics 2021-01-20 2021-01-20 Outpatient [place] [id number] [place] 04:30:00 04:30:00 _L 821 Commun i ty Hospita l Clinics 2020-12-19 2020-12-19 Outpatient [place] [address] [place] 04:30:00 04:30:00 _L 720 Commun i ty Hospita [facility] Clinics 2020-12-19 2020-12-19 Outpatient [facility] 3c4 [id number]-t 00:00:00 00:00:00 , Alyce [id number] Tanya [id number] 2020-12-19 2020-12-19 Alyce Martínez [facility] [place] - [place] 202 [id number] Raymond 00:00:00 00:00:00 GRACIELA Britt-C: [address], [facility] [place] [address] , Ph. 2020-09-08 2020-09-08 Outpatient [facility] [id number] [address] [place] 00:00:00 00:00:[address] 2020-08-11 2020-08-11 Outpatient [facility] [id number] [place] 00:00:00 00:00:[address] 2020-08-11 2020-08-11 Outpatient [facility] [id number] [place] 00:00:00 00:00:[address] 2020-06-26 2020-06-26 Outpatient JOSE [facility] [id number] [place] 00:00:00 00:00:00 MICHELLE [address] 2020-05-05 2020-05-05 Outpatient [facility] 986 [place] 07:09:00 07:09:00 _L 204 Commun i ty Hospita l Clinics 2019-12-20 2019-12-20 Outpatient JOSE [facility] [id number] [address] [place] 00:00:00 00:00:00 MICHELLE [address] Results Test Description Test Time Test Comments Results Result Comments Source Glucose [Mass/volume] in Capillary blood 2022-03-19 15:02:00 Test Item Value Reference Range Interpretation Comme nts Blood Glucose: mg/dl (test code = Blood Glucose: mg/dl) 175 [facility] - Serum or [id number] 00:00:00 Test Item Value Reference Range Interpretation Comments Glucose [Mass/volume] in Serum 187 mg/dL 65-99 H or Plasma (test code = 2345-7) Urea nitrogen [Mass/volume] in 15 mg/dL 8-27 Serum or Plasma (test code = 3094-0) Creatinine [Mass/volume] in 0.97 mg/dL 0.76-1.27 Serum or Plasma (test code = 2160-0) eGFR (test code = eGFR) 87 mL/min/1.73 >59 Urea nitrogen/Creatinine [Mass 15 10-24 Ratio] in Serum or Plasma (test code = 3097-3) Sodium [Moles/volume] in Serum 138 mmol/L 134-144 or Plasma (test code = 2951-2) Potassium [Moles/volume] in 3.8 mmol/L 3.5-5.2 Serum or Plasma (test code = 2823-3) Chloride [Moles/volume] in 100 mmol/L 96-106 Serum or Plasma (test code = 2074-0) Carbon dioxide, total 21 mmol/L 20-29 [Moles/volume] in Serum or Plasma (test code = 2027-) Calcium [Mass/volume] in Serum 9.7 mg/dL 8.6-10.2 or Plasma (test code = 01107-6) Protein [Mass/volume] in Serum 6.7 g/dL 6.0-8.5 or Plasma (test code = 2885-2) Albumin [Mass/volume] in Serum 4.4 g/dL 3.8-4.8 or Plasma (test code = 175-7) Globulin [Mass/volume] in 2.3 g/dL 1.5-4.5 Serum by calculation (test code = 18184-7) Albumin/Globulin [Mass Ratio] 1.9 1.2-2.2 in Serum or Plasma (test code = 1759-0) Bilirubin.total [Mass/volume] 0.7 mg/dL 0.0-1.2 in Serum or Plasma (test code = 1974-) Alkaline phosphatase 75 IU/L 44-121 [Enzymatic activity/volume] in Serum or Plasma (test code = 6768-6) Aspartate aminotransferase 23 IU/L 0-40 [Enzymatic activity/volume] in Serum or Plasma (test code = 1920-8) Alanine aminotransferase 34 IU/L 0-44 [Enzymatic activity/volume] in Serum or Plasma (test code = 1742-6) [facility] - Serum or [id number] 00:00:00 Test Item Value Reference Range Interpretation Comments Cholesterol [Mass/volume] in Serum 218 mg/dL 100-199 H or Plasma (test code = 2092-3) Triglyceride [Mass/volume] in Serum 234 mg/dL 0-149 H or Plasma (test code = 257-8) Cholesterol in HDL [Mass/volume] in 30 mg/dL >39 L Serum or Plasma (test code = 2084-9) Cholesterol in VLDL [Mass/volume] 43 mg/dL 5-40 H in Serum or Plasma by calculation (test code = 76107-7) Cholesterol in LDL [Mass/volume] in 145 mg/dL 0-99 H Serum or Plasma by calculation (test code = 45656-2) Laboratory comment [Text] in Report research and development technician Narrative (test code = 50157-7) Cholesterol in LDL/Cholesterol in 4.8 ratio 0.0-3.6 H HDL [Mass Ratio] in Serum or Plasma (test code = 22871-4) [facility] [Mass/volume] in Serum or [id number] 00:00:00 Test Item Value Reference Range Interpretation Comments Prostate specific Ag [Mass/volume] 0.6 NG/mL 0.0-4.0 in Serum or Plasma (test code = 2857-1) [facility] [Mass/volume] in Serum or [id number] 00:00:00 Test Item Value Reference Range Interpretation Comments Thyroxine (T4) free [Mass/volume] 1.03 NG/dL 0.82-1.77 in Serum or Plasma (test code = 3024-7) [facility] [Units/volume] in Serum or Plasma by Detection limit <= 0.005 mIU/[id number] 00:00:00 Test Item Value Reference Range Interpretation Comments Thyrotropin [Units/volume] in 1.040 uIU/mL 0.450-4.500 Serum or Plasma by Detection limit <= 0.005 mIU/L (test code = 92314-9) [facility]-Hydroxy[facility]amin D3+25-Hydroxyvitamin D2 [Mass/volume] in Serum or [id number] 00:00:00 Test Item Value Reference Range Interpretation Comments 25-Hydroxyvitamin 33.9 NG/mL 30.0-100.0 D3+25-Hydroxyvitamin D2 [Mass/volume] in Serum or Plasma (test code = 51454-7) [facility] [Mass/volume] in Serum or Plasma 2021-09-06 00:00:00 Test Item Value Reference Range Interpretation Comments Phosphate [Mass/volume] in Serum or 3.6 mg/dL 2.8-4.1 Plasma (test code = 2777-1) [facility] 2000 panel - Serum or [id number] 00:00:00 Test Item Value Reference Range Interpretation Comments Glucose [Mass/volume] in Serum 187 mg/dL 65-99 H or Plasma (test code = 2345-7) Urea nitrogen [Mass/volume] in 15 mg/dL 8-27 Serum or Plasma (test code = 3094-0) Creatinine [Mass/volume] in 0.97 mg/dL 0.76-1.27 Serum or Plasma (test code = 2160-0) eGFR (test code = eGFR) 87 mL/min/1.73 >59 Urea nitrogen/Creatinine [Mass 15 10-24 Ratio] in Serum or Plasma (test code = 3097-3) Sodium [Moles/volume] in Serum 138 mmol/L 134-144 or Plasma (test code = 2951-2) Potassium [Moles/volume] in 3.8 mmol/L 3.5-5.2 Serum or Plasma (test code = 2823-3) Chloride [Moles/volume] in 100 mmol/L 96-106 Serum or Plasma (test code = 5-0) Carbon dioxide, total 21 mmol/L 20-29 [Moles/volume] in Serum or Plasma (test code = 2027-) Calcium [Mass/volume] in Serum 9.7 mg/dL 8.6-10.2 or Plasma (test code = 68014-5) Protein [Mass/volume] in Serum 6.7 g/dL 6.0-8.5 or Plasma (test code = 2885-2) Albumin [Mass/volume] in Serum 4.4 g/dL 3.8-4.8 or Plasma (test code = 1751-7) Globulin [Mass/volume] in 2.3 g/dL 1.5-4.5 Serum by calculation (test code = 54436-8) Albumin/Globulin [Mass Ratio] 1.9 1.2-2.2 in Serum or Plasma (test code = 1759-0) Bilirubin.total [Mass/volume] 0.7 mg/dL 0.0-1.2 in Serum or Plasma (test code = 1974-) Alkaline phosphatase 75 IU/L 44-121 [Enzymatic activity/volume] in Serum or Plasma (test code = 6768-6) Aspartate aminotransferase 23 IU/L 0-40 [Enzymatic activity/volume] in Serum or Plasma (test code = 1919-8) Alanine aminotransferase 34 IU/L 0-44 [Enzymatic activity/volume] in Serum or Plasma (test code = 1742-6) [facility] [id number] 00:00:00 Test Item Value Reference Range Interpretation Comments Cholesterol [Mass/volume] in Serum 218 mg/dL 100-199 H or Plasma (test code = 2093-3) Triglyceride [Mass/volume] in Serum 234 mg/dL 0-149 H or Plasma (test code = 2571-8) Cholesterol in HDL [Mass/volume] in 30 mg/dL >39 L Serum or Plasma (test code = 2085-9) Cholesterol in VLDL [Mass/volume] 43 mg/dL 5-40 H in Serum or Plasma by calculation (test code = 44671-7) Cholesterol in LDL [Mass/volume] in 145 mg/dL 0-99 H Serum or Plasma by calculation (test code = 58609-3) Laboratory comment [Text] in Report research and development technician Narrative (test code = 84659-7) Cholesterol in LDL/Cholesterol in 4.8 ratio 0.0-3.6 H HDL [Mass Ratio] in Serum or Plasma (test code = 78909-6) [facility]] in Serum or [id number] 00:00:00 Test Item Value Reference Range Interpretation Comments Prostate specific Ag [Mass/volume] 0.6 NG/mL 0.0-4.0 in Serum or Plasma (test code = 2857-1) [facility] [Mass/volume] in Serum or [id number] 00:00:00 Test Item Value Reference Range Interpretation Comments Thyroxine (T4) free [Mass/volume] 1.03 NG/dL 0.82-1.77 in Serum or Plasma (test code = 3024-7) [facility] [Units/volume] in Serum or Plasma by Detection limit <= 0.005 mIU/[id number] 00:00:00 Test Item Value Reference Range Interpretation Comments Thyrotropin [Units/volume] in 1.040 uIU/mL 0.450-4.500 Serum or Plasma by Detection limit <= 0.005 mIU/L (test code = 77991-8) [facility] Ceirqvl51-Bikaurpfdzzkis D3+25-Hydroxyvitamin D2 [Mass/volume] in Serum or [id number] 00:00:00 Test Item Value Reference Range Interpretation Comments 25-Hydroxyvitamin 33.9 NG/mL 30.0-100.0 D3+25-Hydroxyvitamin D2 [Mass/volume] in Serum or Plasma (test code = 79381-3) [facility]] in Serum or Plasma 2021-09-06 00:00:00 Test Item Value Reference Range Interpretation Comments Phosphate [Mass/volume] in Serum or 3.6 mg/dL 2.8-4.1 Plasma (test code = 2777-1) [facility] W Auto Differential panel - [id number] 00:00:00 Test Item Value Reference Range Interpretation Comments Leukocytes [#/volume] in Blood 6.3 x10e3/uL 3.4-10.8 by Automated count (test code = 6690-2) Erythrocytes [#/volume] in 4.96 x10e6/uL 4.14-5.80 Blood by Automated count (test code = 789-8) Hemoglobin [Mass/volume] in 15.1 g/dL 13.0-17.7 Blood (test code = 718-7) Hematocrit [Volume Fraction] of 44.8 % 37.5-51.0 Blood by Automated count (test code = 4544-3) Erythrocyte mean corpuscular 90 fL 79-97 volume [Entitic volume] by Automated count (test code = 787-2) MCH [Entitic mass] by Automated 30.4 pg 26.6-33.0 count (test code = 785-6) Erythrocyte mean corpuscular 33.7 g/dL 31.5-35.7 hemoglobin concentration [Mass/volume] by Automated count (test code = 786-4) Erythrocyte distribution width 12.4 % 11.6-15.4 [Ratio] by Automated count (test code = 788-0) Platelets [#/volume] in Blood 187 x10e3/uL 150-450 by Automated count (test code = 777-3) Neutrophils/100 leukocytes in 56 % not estab. Blood by Automated count (test code = 770-8) Lymphocytes/100 leukocytes in 32 % not estab. Blood by Automated count (test code = 736-9) Monocytes/100 leukocytes in 9 % not estab. Blood by Automated count (test code = 5905-5) Eosinophils/100 leukocytes in 2 % not estab. Blood by Automated count (test code = 713-8) Basophils/100 leukocytes in 1 % not estab. Blood by Automated count (test code = 706-2) immature cells (test code = research and development technician immature cells) Neutrophils [#/volume] in Blood 3.5 x10e3/uL 1.4-7.0 by Automated count (test code = 751-8) Lymphocytes [#/volume] in Blood 2.0 x10e3/uL 0.7-3.1 by Automated count (test code = 731-0) Monocytes [#/volume] in Blood 0.6 x10e3/uL 0.1-0.9 by Automated count (test code = 742-7) Eosinophils [#/volume] in Blood 0.1 x10e3/uL 0.0-0.4 by Automated count (test code = 711-2) Basophils [#/volume] in Blood 0.0 x10e3/uL 0.0-0.2 by Automated count (test code = 704-7) Immature granulocytes/100 0 % not estab. leukocytes in Blood by Automated count (test code = 09785-6) Immature granulocytes 0.0 x10e3/uL 0.0-0.1 [#/volume] in Blood by Automated count (test code = 12082-0) Nucleated erythrocytes/100 research and development technician leukocytes [Ratio] in Blood by Automated count (test code = 45087-7) Morphology [Interpretation] in research and development technician Blood Narrative (test code = 70464-9) [facility]/Hemoglobin.total in Blood 2021-09-05 00:00:00 Test Item Value Reference Range Interpretation Comments Hemoglobin A1c/Hemoglobin.total in 6.6 % 4.8-5.6 H Blood (test code = 4548-4) [facility] W Auto Differential panel - [id number] 00:00:00 Test Item Value Reference Range Interpretation Comments Leukocytes [#/volume] in Blood 6.3 x10e3/uL 3.4-10.8 by Automated count (test code = 6690-2) Erythrocytes [#/volume] in 4.96 x10e6/uL 4.14-5.80 Blood by Automated count (test code = 789-8) Hemoglobin [Mass/volume] in 15.1 g/dL 13.0-17.7 Blood (test code = 718-7) Hematocrit [Volume Fraction] of 44.8 % 37.5-51.0 Blood by Automated count (test code = 4544-3) Erythrocyte mean corpuscular 90 fL 79-97 volume [Entitic volume] by Automated count (test code = 787-2) MCH [Entitic mass] by Automated 30.4 pg 26.6-33.0 count (test code = 785-6) Erythrocyte mean corpuscular 33.7 g/dL 31.5-35.7 hemoglobin concentration [Mass/volume] by Automated count (test code = 786-4) Erythrocyte distribution width 12.4 % 11.6-15.4 [Ratio] by Automated count (test code = 788-0) Platelets [#/volume] in Blood 187 x10e3/uL 150-450 by Automated count (test code = 777-3) Neutrophils/100 leukocytes in 56 % not estab. Blood by Automated count (test code = 770-8) Lymphocytes/100 leukocytes in 32 % not estab. Blood by Automated count (test code = 736-9) Monocytes/100 leukocytes in 9 % not estab. Blood by Automated count (test code = 5905-5) Eosinophils/100 leukocytes in 2 % not estab. Blood by Automated count (test code = 713-8) Basophils/100 leukocytes in 1 % not estab. Blood by Automated count (test code = 706-2) immature cells (test code = research and development technician immature cells) Neutrophils [#/volume] in Blood 3.5 x10e3/uL 1.4-7.0 by Automated count (test code = 751-8) Lymphocytes [#/volume] in Blood 2.0 x10e3/uL 0.7-3.1 by Automated count (test code = 731-0) Monocytes [#/volume] in Blood 0.6 x10e3/uL 0.1-0.9 by Automated count (test code = 742-7) Eosinophils [#/volume] in Blood 0.1 x10e3/uL 0.0-0.4 by Automated count (test code = 711-2) Basophils [#/volume] in Blood 0.0 x10e3/uL 0.0-0.2 by Automated count (test code = 704-7) Immature granulocytes/100 0 % not estab. leukocytes in Blood by Automated count (test code = 61888-1) Immature granulocytes 0.0 x10e3/uL 0.0-0.1 [#/volume] in Blood by Automated count (test code = 77543-6) Nucleated erythrocytes/100 research and development technician leukocytes [Ratio] in Blood by Automated count (test code = 45129-9) Morphology [Interpretation] in research and development technician Blood Narrative (test code = 82846-3) [facility]c/Hemoglobin.total in Blood 2021-09-05 00:00:00 Test Item Value Reference Range Interpretation Comments Hemoglobin A1c/Hemoglobin.total in 6.6 % 4.8-5.6 H Blood (test code = 4548-4) [facility]&B [id number] 11:18:00 Test Item Value Reference Range Interpretation Comments RAPID INFLUENZA A AG (BEAKER) Positive Negative, Inconclusive A (test code = 1622) RAPID INFLUENZA B AG (BEAKER) Negative Negative, Inconclusive (test code = 1623) COMPREHENSIVE METABOLIC [id number] 11:09:00 Test Item Value Reference Range Interpretation Comments TOTAL PROTEIN 6.9 gm/dL 6.0-8.5 (BEAKER) (test code = 770) ALBUMIN (BEAKER) 3.9 g/dL 3.5-5.0 (test code = 1145) ALKALINE PHOSPHATASE 54 U/L 30-115 (BEAKER) (test code = 346) BILIRUBIN TOTAL 0.6 mg/dL 0.1-1.2 (BEAKER) (test code = 377) SODIUM (BEAKER) 136 meq/L 135-148 (test code = 381) POTASSIUM (BEAKER) 3.8 meq/L 3.6-5.5 (test code = 379) CHLORIDE (BEAKER) 102 meq/L 98-106 (test code = 382) CO2 (BEAKER) (test 23 meq/L 24-32 L code = 355) BLOOD UREA NITROGEN 12 mg/dL 10-26 (BEAKER) (test code = 354) CREATININE (BEAKER) 1.08 mg/dL 0.50-1.20 (test code = 358) GLUCOSE RANDOM 169 mg/dL 70-110 H (BEAKER) (test code = 652) CALCIUM (BEAKER) 8.6 mg/dL 8.5-10.5 (test code = 697) AST (SGOT) (BEAKER) 27 U/L 5-40 (test code = 353) ALT (SGPT) (BEAKER) 43 U/L 5-50 (test code = 347) EGFR (BEAKER) (test mL/min/1.73 INSUFFIC IENT code = 1092) sq m CLINICAL DATA T O CALCULATE ESTIM ATED GFR. RAD, ANKLE, MIN 3 VIEWS, [id number] 11:09:00Reason for exam:- >GENERALIZED BODY ACHESReason for exam:->ANKLE PAINShould this be performed at the bedside?->NoFINAL REPORT RIGHT ANKLE 3 VIEWS HISTORY: Right ankle pain COMPARISON: None FINDINGS: AP, mortise, and lateral views the right ankle were performed. No fracture or dislocation are v isualized in the right ankle. Minimal lateral soft tissue swelling. No degenerative or erosive changes are evident. Question small joint effusion. Small plantar and Achilles enthesophytes are noted in the posterior calcaneus. IMPRESSION: 1. No fracture or acute bony abnormalities are visualized in the right ankle. Signed: Brandi Hanson Verified Date/Time: 06/07/2017 11:09:20 Reading Location:[address] Ortho Consult Reading Room [id number] 11:08:00 Test Item Value Reference Range Interpretation Comments MAGNESIUM (BEAKER) (test code = 1.8 mg/dL 1.5-3.0 627) [id number] 11:08:00 Test Item Value Reference Range Interpretation Comments PHOSPHORUS (BEAKER) (test code = 3.3 mg/dL 2.5-4.5 604) RAD, CHEST, 2 [id number] 11:07:00Reason for exam:->GENERALIZED BODY ACHESReason for exam:->coughReason for exam:->feverShould this be performed at the bedside?->NoFINAL REPORT History: Cough, fever Comparison: None Findings: There are curvilinear opacities at the bilateral lung bases which in the acute setting may reflect pneumonia. No compar kassy studies are available to determine if this represents chronic lung disease/chronic scar. No pleural effusions or pneumothorax. The heart shadow is normal in size. The thoracic aorta is mildly tortuous. Degenerative changes are present in the spine. Impression: Mild bibasilar pulmonary opacities suggestive of pneumonia. Signed: Brandi Hanson MDReport Verified Date/Time: 06/07/2017 11:07:39 ReadingLocation: [facility] B1 [id number] Ortho Consult Reading Room CBC W/PLT COUNT & AUTO [id number] 11:03:00 Test Item Value Reference Range Interpretation Comments WHITE BLOOD CELL COUNT (BEAKER) 5.2 10e3/ L 4.0-10.0 (test code = 775) RED BLOOD CELL COUNT (BEAKER) 4.51 10e6/ L 4.20-5.80 (test code = 761) HEMOGLOBIN (BEAKER) (test code = 13.9 g/dL 13.0-16.8 410) HEMATOCRIT (BEAKER) (test code = 41.6 % 40.0-50.0 411) MEAN CORPUSCULAR VOLUME (BEAKER) 92.3 fL 82.0-98.0 (test code = 753) MEAN CORPUSCULAR HEMOGLOBIN 30.7 pg 27.0-33.0 (BEAKER) (test code = 751) MEAN CORPUSCULAR HEMOGLOBIN CONC 33.3 g/dL 32.0-36.0 (BEAKER) (test code = 752) RED CELL DISTRIBUTION WIDTH 12.4 % 10.3-14.2 (BEAKER) (test code = 412) PLATELET COUNT (BEAKER) (test 140 10e3/ L 150-430 L code = 756) MEAN PLATELET VOLUME (BEAKER) 8.2 fL 6.5-10.5 (test code = 754) NEUTROPHILS RELATIVE PERCENT 57 % (BEAKER) (test code = 429) LYMPHOCYTES RELATIVE PERCENT 24 % (BEAKER) (test code = 430) MONOCYTES RELATIVE PERCENT 16 % (BEAKER) (test code = 431) EOSINOPHILS RELATIVE PERCENT 2 % (BEAKER) (test code = 432) BASOPHILS RELATIVE PERCENT 1 % (BEAKER) (test code = 437) NEUTROPHILS ABSOLUTE COUNT 2.98 10e3/ L 1.80-8.00 (BEAKER) (test code = 670) LYMPHOCYTES ABSOLUTE COUNT 1.23 10e3/ L 1.48-4.50 L (BEAKER) (test code = 414) MONOCYTES ABSOLUTE COUNT 0.84 10e3/ L 0.00-1.30 (BEAKER) (test code = 415) EOSINOPHILS ABSOLUTE COUNT 0.12 10e3/ L 0.00-0.50 (BEAKER) (test code = 416) BASOPHILS ABSOLUTE COUNT 0.03 10e3/ L 0.00-0.20 (BEAKER) (test code = 417)
[2022-05-01] MEDS ORDERED: PROMETHAZINE INJ 25 MG/ML AMP ONE (20:51)
--- NOTE | 2022-05-01 21:08 | RAD REPORT ---
EXAM DESCRIPTION: RAD - Chest Single View - 05/01/2022 8:52 pm CLINICAL HISTORY: vomiting COMPARISON: <Comparisons> FINDINGS: Lines: None. Lungs: No evidence of edema or pneumonia. Pleural: No significant pleural effusions or pneumothorax. Cardiac: The heart size is within normal limits. Mediastinum: Within normal limits. Bones: No acute fractures. Other: None IMPRESSION: No acute cardiopulmonary disease.
[2022-05-01] MEDS ORDERED: ASPIRIN 81 MG CHEWABLE TABLET ONE (21:18)
[2022-05-01 21:26] LABS: Absolute Lymphocytes (CBC) 0.7 K/uL (0.7-4.9); Hematocrit 45.2 % (39.6-49.0); Lymphocytes % 11.7 % (15.3-44.8); MCV 92.1 fL (80-100); MPV 8.8 fL (7.6-11.3); RBC Red Blood Cell Count 4.91 M/uL (4.33-5.43)
[2022-05-01 21:31] LABS: Protime INR 1.04
[2022-05-01] MEDS ORDERED: HYDROCODONE/CHLORPHEN 5 ML/OSYR ONE (21:39)
[2022-05-01 21:47] LABS: Albumin 4.2 g/dL (3.4-5.0); Bilirubin Direct 0.2 mg/dL (0-0.2); Bilirubin Total 0.7 mg/dL (0.2-1.0); Magnesium 1.8 mg/dL (1.8-2.4); Potassium 3.8 mmol/L (3.5-5.1); Protein, Total 8.1 g/dL (6.4-8.2); Troponin High Sensitivity 5.7 pg/mL (<58.9)
--- NOTE | 2022-05-01 21:55 | EDPHYS ---
Physician Documentation [facility] Name: Johnnie Strong Age: 66 yrs Sex: Male : 1955 Arrival Date: 05/01/2022 Time: 20:24 Bed 7 Private MD: ED Physician Ian Franklin HPI: 05/01 20:41 This 66 yrs old Male presents to ER via Wheelchair with complaints of Fever, Vomiting, snw Diarrhea. 20:41 The patient reports fever, not measured (subjective). Onset: The symptoms/episode snw began/occurred suddenly, today. Modifying factors: pt has been having back pain for two months, has seen PCP and tried different medications, has seen back specialist and had an injection, has seen chiro and all modalities have failed to give relief. Pt traveled via car to [place] and [facility] and today has cough, congestion, fever, nausea, and vomiting. Associated signs and symptoms: Pertinent positives: chills, sinus congestion, sore throat, vomiting. Severity of symptoms: At their worst the symptoms were moderate in the emergency department the symptoms are unchanged. It is unknown whether or not the patient has had similar symptoms in the past. as noted. Historical: - Allergies: 20:38 No Known Allergies; kd3 - Home Meds: 20:38 Chlorthalidone Oral [Active]; gabapentin 300 mg oral cap 1 cap [Active]; magnesium kd3 oxide 400 mg magnesium Oral cap [Active]; metoprolol tartrate 25 mg Oral tab [Active]; Vitamin C Oral [Active]; Vitamin D Oral [Active]; zinc oral [Active]; Thiamine Oral [Active]; fenofibrate oral [Active]; Metformin Oral [Active]; rosuvastatin oral [Active]; - Immunization history:: Adult Immunizations up to date. - Social history:: Smoking status: unknown. ROS: 20:44 Eyes: Negative for injury, pain, redness, and discharge. snw 20:44 Neck: Negative for injury, pain, and swelling, Cardiovascular: Negative for chest pain, palpitations, and edema. 20:44 : Negative for injury, bleeding, discharge, and swelling, MS/Extremity: Negative for injury and deformity, Skin: Negative for injury, rash, and discoloration, Neuro: Negative for headache, weakness, numbness, tingling, and seizure. 20:44 Constitutional: Positive for body aches, fatigue, fever, malaise, poor PO intake. 20:44 ENT: Positive for sinus congestion. 20:44 Respiratory: Positive for cough. 20:44 Abdomen/GI: Positive for nausea, vomiting, and diarrhea. 20:44 Back: Positive for pain at rest, pain with movement. Exam: 20:39 Head/Face: Normocephalic, atraumatic. Eyes: Pupils equal round and reactive to light, snw extra-ocular motions intact. Lids and lashes normal. Conjunctiva and sclera are non-icteric and not injected. Cornea within normal limits. Periorbital areas with no swelling, redness, or edema. ENT: Nares patent. No nasal discharge, no septal abnormalities noted. Tympanic membranes are normal and external auditory canals are clear. Oropharynx with no redness, swelling, or masses, exudates, or evidence of obstruction, uvula midline. Mucous membranes moist. Neck: Trachea midline, no thyromegaly or masses palpated, and no cervical lymphadenopathy. Supple, full range of motion without nuchal rigidity, or vertebral point tenderness. No Meningismus. Chest/axilla: Normal chest wall appearance and motion. Nontender with no deformity. No lesions are appreciated. 20:39 Respiratory: Lungs have equal breath sounds bilaterally, clear to auscultation and percussion. No rales, rhonchi or wheezes noted. No increased work of breathing, no retractions or nasal flaring. Abdomen/GI: Soft, non-tender, with normal bowel sounds. No distension or tympany. No guarding or rebound. No evidence of tenderness throughout. Back: No spinal tenderness. No costovertebral tenderness. Full range of motion. Skin: Warm, dry with normal turgor. Normal color with no rashes, no lesions, and no evidence of cellulitis. MS/ Extremity: Pulses equal, no cyanosis. Neurovascular intact. Full, normal range of motion. Neuro: Awake and alert, GCS 15, oriented to person, place, time, and situation. Cranial nerves II-XII grossly intact. Motor strength 5/5 in all extremities. Sensory grossly intact. Cerebellar exam normal. Normal gait. Psych: Awake, alert, with orientation to person, place and time. Behavior, mood, and affect are within normal limits. 20:39 Back: No spinal tenderness. No costovertebral tenderness. having back pain for 2 months 20:39 Constitutional: The patient appears alert, awake, obese, uncomfortable. 20:39 Cardiovascular: Rate: tachycardic, Rhythm: regular, Pulses: no pulse deficits are appreciated. Vital Signs: 20:36 BP 147 / 92; Pulse 105; Resp 21; Temp 100.3(O); Pulse Ox 98% on R/A; Weight 122.47 kg; kd3 Height 6 ft. 2 in. (187.96 cm); Pain 8/10; 20:41 BP 147 / 92; Pulse 105; Resp 21 S; Pulse Ox 98% on R/A; ha1 22:32 BP 141 / 85; Pulse 82; Resp 18; Pulse Ox 100% on R/A; kl 20:36 Body Mass Index 34.67 (122.47 kg, 187.96 cm) kd3 MDM: 20:38 Patient medically screened. chidi 21:57 Data reviewed: vital signs, nurses notes. Data interpreted: Pulse oximetry: on room air snw is 98 %. Interpretation: normal. Counseling: I had a detailed discussion with the patient and/or guardian regarding: the historical points, exam findings, and any diagnostic results supporting the discharge/admit diagnosis, the presence of at least one elevated blood pressure reading (>120/80) during this emergency department visit, lab results, radiology results, the need for outpatient follow up, to return to the emergency department if symptoms worsen or persist or if there are any questions or concerns that arise at home. Special discussion: I have referred the patient to see his PCP for further evaluation of high blood pressure. Based on the history and exam findings, there is no indication for further emergent testing or inpatient evaluation. I discussed with the patient/guardian the need to see the primary care provider for further evaluation of the symptoms. 05/01 20:36 Order name: COVID-19/FLU A+B; Complete Time: 22:10 snw 05/01 20:36 Order name: Basic Metabolic Panel; Complete Time: 21:53 snw 05/01 20:36 Order name: CBC with Diff; Complete Time: 21:37 snw 05/01 20:36 Order name: LFT's; Complete Time: 21:53 snw 05/01 20:36 Order name: Magnesium; Complete Time: 21:53 snw 05/01 20:36 Order name: NT PRO-BNP; Complete Time: 21:53 snw 05/01 20:36 Order name: PT-INR; Complete Time: 21:37 snw 05/01 20:36 Order name: Troponin HS; Complete Time: 21:53 snw 05/01 20:36 Order name: XRAY Chest (1 view); Complete Time: 21:11 snw 05/01 20:36 Order name: EKG; Complete Time: 20:36 snw 05/01 20:36 Order name: Cardiac monitoring; Complete Time: 21:06 snw 05/01 20:36 Order name: EKG - Nurse/Tech; Complete Time: 21:06 snw 05/01 20:36 Order name: IV Saline Lock; Complete Time: 21: snw 05/01 20:36 Order name: Labs collected and sent; Complete Time: 21:06 snw 05/01 20:36 Order name: O2 Per Protocol; Complete Time: 21:06 snw 05/01 20:36 Order name: O2 Sat Monitoring; Complete Time: 21:06 snw Administered Medications: 21:00 Drug: Promethazine 25 mg Route: IM; Site: right ventrogluteal; kl 22:10 Follow up: Response: No adverse reaction; No change in condition kl 21:24 Drug: Aspirin Chewable Tablet 324 mg Route: PO; kl 22:32 Follow up: Response: No adverse reaction kl 21:38 Drug: Tussionex Pennkinetic ER (chlorpheniramine-hydrocodone) Suspension 5 ml Route: PO;kl 22:11 Follow up: Response: No adverse reaction; No change in condition kl 22:10 Drug: Dilaudid (HYDROmorphone) 1 mg Route: IM; Site: right ventrogluteal; kl 22:26 Follow up: Response: No adverse reaction kl 22:31 Follow up: Response: No adverse reaction; Marked relief of symptoms kl 22:10 Drug: Valium (diazepam) 5 mg Route: PO; kl 22:26 Follow up: Response: No adverse reaction kl 22:31 Follow up: Response: No adverse reaction kl Disposition Summary: 05/01/22 21:54 Discharge Ordered Location: Home snw Condition: Stable snw Diagnosis - SARS-associated coronavirus as the cause of diseases classified elsewhere snw - Low back pain snw Followup: snw - With: Emergency Department - When: As needed - Reason: Worsening of condition Followup: snw - With: Private Physician - When: 5 - 6 days - Reason: Recheck today's complaints, Continuance of care, Re-evaluation by your physician Discharge Instructions: - Discharge Summary Sheet snw - Aspirin and Your Heart snw - COVID-19 snw - 10 Things You Can Do to Manage Your COVID-19 Symptoms at Home - [facility] [place] snw - COVID-19: Quarantine vs. Isolation - [facility] [place] snw Forms: - Medication Reconciliation Form snw - Thank You Letter snw - Antibiotic Education snw - Work release form snw - Prescription Opioid Use snw Prescriptions: - acetylcysteine (bulk) - take 600 milligram by ORAL route once daily; 90 milligram; Refills: 0, Product snw Selection Permitted - promethazine 6.25 mg/5 mL Oral syrup - take 10 milliliter by ORAL route every 4-6 hours; 240 milliliter; Refills: 0, snw Product Selection Permitted - Zyrtec 10 mg Oral Tablet - take 1 tablet by ORAL route once daily As needed; 20 tablet; Refills: 0, snw Product Selection Permitted - Pepcid 20 mg Oral Tablet - take 1 tablet by ORAL route once daily; 20 tablet; Refills: 0, Product snw Selection Permitted - Mobic 7.5 mg Oral Tablet - take 1 tablet by ORAL route once daily take with food; 20 tablet; Refills: 0, snw Product Selection Permitted Addendum: 05/05/2022 07:52 Co-signature as Attending Physician, Ian Franklin MD I agree with the assessment and c bustamante plan of care. Signatures: Dispatcher [employer], RN Ian Gomez MD MD cha Waters, Shelly, SIGNAL INTELLIGENCE/ELECTRONIC WARFARE-C SIGNAL INTELLIGENCE/ELECTRONIC WARFARE-Csnw Deana De La Rosa, RN RN kd3
--- NOTE | 2022-05-01 21:55 | ER ---
Nurse's Notes [facility] Name: Johnnie Strong Age: 66 yrs Sex: Male : 1955 Arrival Date: 05/01/2022 Time: 20:24 Bed 7 Private MD: Diagnosis: SARS-associated coronavirus as the cause of diseases classified elsewhere;Low back pain Presentation: 05/01 20:36 Chief complaint: Patient states: about 1 and a half months ago I pulled a muscle in my kd3 back and I've had an MRI and taken steroids for it and I've been on pain medications but today I started vomiting and having diarrhea and a fever. I don't know if the two things are related or not but I am really feeling bad. Coronavirus screen: Vaccine status: Patient reports receiving the 2nd dose of the covid vaccine. moderna. Ebola Screen: No symptoms or risks identified at this time. Initial Sepsis Screen: Does the patient meet any 2 criteria? No. Patient's initial sepsis screen is negative. Does the patient have a suspected source of infection? No. Patient's initial sepsis screen is negative. Risk Assessment: Do you want to hurt yourself or someone else? Patient reports no desire to harm self or others. Onset of symptoms was May 01, 2022. 20:36 Method Of Arrival: Wheelchair kd3 20:36 Acuity: EB 4 kd3 Triage Assessment: 20:38 General: Appears uncomfortable, Behavior is calm, cooperative. Pain: Complains of pain kd3 in headache. Neuro: Level of Consciousness is awake, alert, obeys commands, Oriented to person, place, time, situation. Respiratory: Airway is patent Trachea midline Respiratory effort is even, unlabored, Respiratory pattern is regular, symmetrical. GI: Reports diarrhea, vomiting, since today. Historical: - Allergies: 20:38 No Known Allergies; kd3 - Home Meds: 20:38 Chlorthalidone Oral [Active]; gabapentin 300 mg oral cap 1 cap [Active]; magnesium kd3 oxide 400 mg magnesium Oral cap [Active]; metoprolol tartrate 25 mg Oral tab [Active]; Vitamin C Oral [Active]; Vitamin D Oral [Active]; zinc oral [Active]; Thiamine Oral [Active]; fenofibrate oral [Active]; Metformin Oral [Active]; rosuvastatin oral [Active]; - Immunization history:: Adult Immunizations up to date. - Social history:: Smoking status: unknown. Screenin:42 Abuse screen: Denies threats or abuse. Denies injuries from another. Nutritional ha1 screening: No deficits noted. Tuberculosis screening: No symptoms or risk factors identified. Fall Risk None identified. Assessment: 20:38 General: Appears uncomfortable, Behavior is calm, cooperative. Pain: Complains of pain ha1 in head and back Pain does not radiate. Pain currently is 8 out of 10 on a pain scale. Alleviated by medications. Neuro: Level of Consciousness is awake, alert, obeys commands, Oriented to person, place, time, situation. Cardiovascular: Capillary refill < 3 seconds Patient's skin is warm and dry. Respiratory: Airway is patent Trachea midline Respiratory effort is even, unlabored, Respiratory pattern is regular, symmetrical. GI: Abdomen is non-distended, obese, Reports diarrhea, vomiting. : No signs and/or symptoms were reported regarding the genitourinary system. EENT: No deficits noted. No signs and/or symptoms were reported regarding the EENT system. Derm: No signs and/or symptoms reported regarding the dermatologic system. Skin is pink, warm \T\ dry. Musculoskeletal: Circulation, motion, and sensation intact. Range of motion: intact in all extremities. 21:07 Reassessment: Patient appears in no apparent distress at this time. Patient is alert, kl oriented x 3, equal unlabored respirations, skin warm/dry/pink. 22:30 Reassessment: Patient appears in no apparent distress at this time. Patient and/or kl family updated on plan of care and expected duration. Pain level reassessed. Patient is alert, oriented x 3, equal unlabored respirations, skin warm/dry/pink. Vital Signs: 20:36 BP 147 / 92; Pulse 105; Resp 21; Temp 100.3(O); Pulse Ox 98% on R/A; Weight 122.47 kg; kd3 Height 6 ft. 2 in. (187.96 cm); Pain 8/10; 20:41 BP 147 / 92; Pulse 105; Resp 21 S; Pulse Ox 98% on R/A; ha1 22:32 BP 141 / 85; Pulse 82; Resp 18; Pulse Ox 100% on R/A; kl 20:36 Body Mass Index 34.67 (122.47 kg, 187.96 cm) kd3 ED Course: 20:24 Patient arrived in ED. bp1 20:35 Jada Álvarez FNP-C is PHCP. snw 20:35 Ian Franklin MD is Attending Physician. snw 20:38 Scarlett Dumont RN is Primary Nurse. ha1 20:38 Triage completed. kd3 20:38 Arm band placed on right wrist. kd3 20:42 Patient has correct armband on for positive identification. Placed in gown. Bed in low ha1 position. Call light in reach. Side rails up X 1. Adult w/ patient. 20:45 Inserted saline lock: 20 gauge in right antecubital area, using aseptic technique. kl Blood collected. 20:54 XRAY Chest (1 view) In Process Unspecified. EDMS 21:06 Basic Metabolic Panel Sent. kl 21:06 CBC with Diff Sent. kl 21:06 LFT's Sent. kl 21:06 NT PRO-BNP Sent. kl 21:06 Magnesium Sent. kl 21:06 PT-INR Sent. kl 21:06 Troponin HS Sent. kl 21:07 COVID-19/FLU A+B Sent. kl 22:30 No provider procedures requiring assistance completed. IV discontinued, intact, kl bleeding controlled, No redness/swelling at site. Pressure dressing applied. Administered Medications: 21:00 Drug: Promethazine 25 mg Route: IM; Site: right ventrogluteal; kl 22:10 Follow up: Response: No adverse reaction; No change in condition kl 21:24 Drug: Aspirin Chewable Tablet 324 mg Route: PO; kl 22:32 Follow up: Response: No adverse reaction kl 21:38 Drug: Tussionex Pennkinetic ER (chlorpheniramine-hydrocodone) Suspension 5 ml Route: PO;kl 22:11 Follow up: Response: No adverse reaction; No change in condition kl 22:10 Drug: Dilaudid (HYDROmorphone) 1 mg Route: IM; Site: right ventrogluteal; kl 22:26 Follow up: Response: No adverse reaction kl 22:31 Follow up: Response: No adverse reaction; Marked relief of symptoms kl 22:10 Drug: Valium (diazepam) 5 mg Route: PO; kl 22:26 Follow up: Response: No adverse reaction kl 22:31 Follow up: Response: No adverse reaction jennifer Medication: 22:31 VIS not applicable for this client. jennifer Outcome: 21:54 Discharge ordered by . ced 22:30 Discharged to home ambulatory. jennifer 22:30 Condition: improved 22:30 Discharge instructions given to patient, Instructed on discharge instructions, follow up and referral plans. medication usage, Demonstrated understanding of instructions, follow-up care, medications, Prescriptions given X 4. 22:32 Patient left the ED. Signatures: Dispatcher [employer] EDMS Harmony Nice RN RN Jada Celestin, [employer]-C [employer]-Csnw Shaniqua Hurt Kyli RN RN kd3 Scarlett Dumont RN RN ha1
[2022-05-01 22:04] LABS: SARS-COV-2 RT PCR POSITIVE (NEGATIVE)
[2022-05-01] MEDS ORDERED: DIAZEPAM 5 MG TABLET ONE (22:16)
[2022-05-01] MEDS ORDERED: HYDROMORPHONE HCL 1 MG/ML INJ ONE (22:16)
[2022-05-01 23:56] VITALS: TEMP 100.3
[2022-05-02 00:16] VITALS: BP 141/85; O2SAT 100
--- NOTE | 2022-05-02 13:21 | EKG ---
Test Date: 2022-05-01 Test Time: 21:12:38 [place]: MIGUEL A MEASUREMENT RESULTS: Intervals: Rate: 93 MA: 172 QRSD: 84 QT: 328 QTc: 407 [place]: P: 48 MA: 172 QRS: -19 T: 41 INTERPRETIVE STATEMENTS: Normal sinus rhythm Normal ECG No previous ECG available for comparison Electronically Signed On 05-02-22 13:20:30 CORPORATE RECEPTIONIST by Higinio Rome
== END 2022-05-01 22:32 | disposition home or self-care (01) ==
LOC: ER 20:19
DX: U07.1 COVID-19 (principal); M54.50 Low back pain, unspecified
CPT/HCPCS: 93005; 85025; 80048; 36415; 83735; 85610; 80076; 84484; 83880; 0240U; 71045; 96372; 99284; J2550; J1170